=== PATIENT | male | born 1975 | race Two or more races ===

== ENCOUNTER 2018-07-09 15:25 | Emergency (ER) | payer MEDICAID ==
[~2018-07-09] VITALS: Ht 175.3 cm; Wt 80.7 kg
--- NOTE | 2018-07-09 15:25 | NUR ---
PT BIBRA FROM HOME FOR CP; PT AAOX4, PT ON MONITOR, NO SOB, NAD NOTED, VSS, PENDING ER PROVIDER EVAL
[2018-07-09 16:06] LABS: BASOPHILS # (AUTO) 0.1 /CMM (0.0-0.2); BASOPHILS % (AUTO) 0.5 % (0.0-2.0); EOSINOPHILS % (AUTO) 0.8 % (0.0-6.0); HEMATOCRIT 44 % (39-51); HEMOGLOBIN 15.1 g/dL (13.5-17.5); LYMPHOCYTES # (AUTO) 1.9 /CMM (0.8-4.8); LYMPHOCYTES % (AUTO) 19.4 % (20.0-44.0); MEAN CORPUSCULAR HGB CONC 34 g/dl (31.0-36.0); MEAN CORPUSCULAR VOLUME 89 fL (80-96); MONOCYTES # (AUTO) 0.6 /CMM (0.1-1.30); MONOCYTES % (AUTO) 6.2 % (2.0-12.0); NEUTROPHILS # (AUTO) 7.1 /CMM (1.8-8.9); NEUTROPHILS % (AUTO) 73.1 % (43.0-81.0); PLATELET COUNT (AUTO) 205 /CMM (150-450); RED BLOOD CELL COUNT(AUTO) 4.98 MIL/uL (4.5-6.0); WHITE BLOOD COUNT (AUTO) 9.7 K/uL (4.3-11.0)
[2018-07-09 16:21] LABS: ALANINE AMINOTRANSFERASE 23 U/L (12-78); ALKALINE PHOSPHATASE 66 U/L (46-116); ASPARTATE AMINOTRANSFERASE 13 U/L (15-37); BILIRUBIN,DIRECT 0.1 mg/dL (0.0-0.2); BILIRUBIN,TOTAL 0.4 mg/dL (0.2-1.0); CALCIUM, SERUM 9.8 mg/dL (8.5-10.1); CARBON DIOXIDE 29 mmol/L (21-32); CHLORIDE 100 mmol/L (98-107); CREATININE 0.8 mg/dL (0.6-1.3); GLUCOSE 147 mg/dL (74-106); POTASSIUM 3.6 mmol/L (3.5-5.1); SODIUM SERUM 137 mmol/L (136-145); TOTAL PROTEIN, SERUM 7.2 g/dL (6.4-8.2); UREA NITROGEN, BLOOD 14 mg/dL (7-18)
[2018-07-09 16:33] VITALS: BP 146/78
--- NOTE | 2018-07-09 17:15 | NUR ---
Patient discharged to home in stable condition. Written and verbal after care instructions given. Patient verbalizes understanding of instruction. IV removed. Catheter intact and site benign. Pressure and 4x4 applied to site. No bleeding noted.
== END 2018-07-09 17:15 | disposition home or self-care (01) ==
LOC: ER 15:28
DX: R07.89 Other chest pain (principal); F17.200 Nicotine dependence, unspecified, uncomplicated
CPT/HCPCS: 36415; 71045-TC; 80048-TC; 80076-TC; 84484-TC; 85025-TC; 85730-TC

== ENCOUNTER 2021-12-05 19:55 | Emergency (ER) | payer MEDICAID ==
[~2021-12-05] VITALS: Ht 175.3 cm; Wt 80.7 kg
[2021-12-05] MEDS ORDERED: LIDOCAINE HCL/PF 1% 30 ML VIAL TP ONE (20:30)
[2021-12-05] MEDS ORDERED: TDAP [DIPH/PERTUSSIS/TET] 0.5 ML VIAL IM ONE ×2 (20:30→20:33)
[2021-12-05] MEDS ORDERED: BACI/NEOM/POLY B OINT PKT 1 UDPKT PACKET TP ONE (20:30)
[2021-12-05] MEDS ORDERED: BACITRACIN ZINC OINT PACKET 1 EA PACKET TP ONE (20:33)
[2021-12-05] MEDS ORDERED: LIDOCAINE 1% INJ 50 ML MDV IJ ONE ×2 (20:33→22:45)
--- NOTE | 2021-12-05 20:37 | NUR ---
PT BROUGHT IN C/O R HAND AVULSION. AWAKE AND ALERT X4 BREATHING EVEN AND UNLABORED ALL V/S WNL. GANG WORKER AT BEDSIDE FOR EVAL.
--- NOTE | 2021-12-05 20:50 | NUR ---
LIME MIXER AT BEDSIDE
--- NOTE | 2021-12-05 21:18 | NUR ---
TELEGRAPH REPEATER MECHANIC AT BEDSIDE FOR LACERATION REPAIR
[2021-12-05] MEDS ORDERED: HYDR-4303 PO (23:59)
[2021-12-05] MEDS ORDERED: AMOX-430 PO (23:59)
[2021-12-05] MEDS ORDERED: IBUP-1955 PO (23:59)
--- NOTE | 2021-12-06 00:07 | NUR ---
WOUND CARE AND SPLINT APPLIED.
--- NOTE | 2021-12-06 00:17 | NUR ---
Patient discharged to home in stable condition. Written and verbal after care instructions given. Patient verbalizes understanding of instruction.
[2021-12-06 01:08] VITALS: BP 137/87
== END 2021-12-06 00:20 | disposition home or self-care (01) ==
LOC: ER 20:01
DX: S61.411A Laceration without foreign body of right hand, initial encounter (principal); F17.200 Nicotine dependence, unspecified, uncomplicated; Z79.899 Other long term (current) drug therapy; V09.9XXA Pedestrian injured in unspecified transport accident, initial encounter; Y93.89 Activity, other specified; Y92.89 Other specified places as the place of occurrence of the external cause; Y99.0 Civilian activity done for income or pay
CPT/HCPCS: 99283; 12001; 90471; 90715; 73130; J3490 ×3

== ENCOUNTER 2021-12-07 18:59 | Emergency (ER) | payer MEDICAID ==
[~2021-12-07] VITALS: Ht 175.3 cm; Wt 80.7 kg
[~2021-12-07 18:59] MED LIST: AMOX-430 PO; HYDR-4303 PO; IBUP-1955 PO
--- NOTE | 2021-12-07 19:05 | NUR ---
PT BIBSELF C/O RT HAND WOUND CHECK. PT AAOX4 BREATHING EVENLY AND UNLABORED.PT ATTACHED TO MONITOR. SHOP ASSISTANT AT BEDSIDE FOR WOUND ASSESSMENT.
--- NOTE | 2021-12-07 19:19 | NUR ---
EMT AT BEDSIDE FOR WOUND CARE
--- NOTE | 2021-12-07 19:24 | NUR ---
Patient discharged to home in stable condition. Written and verbal after care instructions given. Patient verbalizes understanding of instruction. PT ambulatory with a steady gait
[2021-12-07 19:32] VITALS: BP 142/80
== END 2021-12-07 19:24 | disposition home or self-care (01) ==
LOC: ER 19:06
DX: S61.411D Laceration without foreign body of right hand, subsequent encounter (principal); F17.200 Nicotine dependence, unspecified, uncomplicated; Z79.899 Other long term (current) drug therapy; Z48.00 Encounter for change or removal of nonsurgical wound dressing; X58.XXXD Exposure to other specified factors, subsequent encounter

== ENCOUNTER 2021-12-11 13:31 | Emergency (ER) | payer MEDICAID ==
[~2021-12-11] VITALS: Ht 175.3 cm; Wt 77.1 kg
[2021-12-11 13:42] VITALS: BP 135/71
== END 2021-12-11 15:00 | disposition home or self-care (01) ==
LOC: ER 13:34
DX: Z48.00 Encounter for change or removal of nonsurgical wound dressing (principal); S61.411D Laceration without foreign body of right hand, subsequent encounter; Z79.899 Other long term (current) drug therapy; X58.XXXD Exposure to other specified factors, subsequent encounter